=== PATIENT | female | born 1985 | race African-American/Black ===

== ENCOUNTER 2017-03-16 09:23 | Emergency (ER) | payer OTHER ==
[~2017-03-16] VITALS: Ht 170.2 cm; Wt 73.5 kg
[~2017-03-16 09:23] MED LIST: CLONAZEPAM0.5 M2 PO; PERCOCET 5-3251 EACH PO
[2017-03-16 09:30] VITALS: BP 124/80
[2017-03-16] MEDS ORDERED: KEFLEX500 M1 PO (09:58)
--- NOTE | 2017-03-16 09:58 | ED THROAT/DENTAL COMPLAINT ---
History of Present Illness General Chief Complaint: Sore Throat, Dental Pain Stated Complaint: SORE THROAT Source: patient Exam Limitations: no limitations Vital Signs & Intake/Output Vital Signs & Intake/Output Vital Signs Date Time Temp Pulse Resp B/P B/P Pulse O2 O2 Flow FiO2 Mean Ox Delivery Rate 03/16 0930 99.8 100 18 124/80 98 Room Air Allergies Coded Allergies: Penicillins (Severe, HIVES 09/23/16) codeine (Severe, HIVES 09/23/16) Reconcile Medications Cephalexin (Keflex) 500 MG CAPSULE 1 CAP PO TID STRTEP Clonazepam 0.5 MG TABLET 1 TAB PO BIDP PRN ANXIETY (Reported) Oxycodone HCl/Acetaminophen (Percocet 5-325 MG Tablet) 5 MG-325 MG TABLET 1 TAB PO Q6P PRN severe pain Triage Note: PT COMPLAINS OF SORE THROAT X 2 DAYS, DIFFICULTY SWALLOWING SPUTUM DUE TO PAIN Triage Nurses Notes Reviewed? yes Onset: Abrupt Duration: day(s):, constant, continues in ED Timing: recent history Injury Environment: home Severity: moderate, severe No Modifying Factors: none : No Patient currently breastfeeds: No HPI: 31-year-old female comes into emergency room for further evaluation of sore throat for the past 3 days. Hurts to swallow. Denies any fever. Denies any vomiting. Denies any cough. History of strep throat. Associated neck soreness. Denies any other associated symptoms. (ELISE PEREZ) Past History Travel History Traveled to [place] past 21 day No Medical History Any Pertinent Medical History? see below for history Neurological: NONE EENT: NONE Cardiovascular: NONE Respiratory: NONE Gastrointestinal: NONE Hepatic: NONE Renal: NONE Musculoskeletal: NONE Psychiatric: anxiety Endocrine: NONE Blood Disorders: NONE Cancer(s): NONE BOAT CAPTAIN/Reproductive: miscarriage, ECTOPIC History of MRSA: No History of VRE: No History of CDIFF: No Surgical History Surgical History: non-contributory Psychosocial History Who do you live with Family Services at Home None What is your primary language Italian Tobacco Use: Never used ETOH Use: denies use Illicit Drug Use: denies illicit drug use Family History Hx Contributory? No (ELISE PEREZ) Review of Systems Review of Systems Constitutional: Reports: see HPI. EENTM: Reports: see HPI. Respiratory: Reports: no symptoms. Cardiovascular: Reports: no symptoms. GI: Reports: no symptoms. Genitourinary: Reports: no symptoms. Musculoskeletal: Reports: no symptoms. Skin: Reports: no symptoms. Neurological/Psychological: Reports: no symptoms. Hematologic/Endocrine: Reports: no symptoms. Immunologic/Allergic: Reports: no symptoms. All Other Systems: Reviewed and Negative (ELISE PEREZ) Physical Exam Physical Exam General Appearance: well developed/nourished, no apparent distress, alert Head: atraumatic, normal appearance Eyes: Bilateral: normal appearance. Nose: normal inspection Mouth/Throat: Pharyngeal erythema, Neck: lymphadenopathy (R), lymphadenopathy (L) Cardiovascular/Respiratory: no respiratory distress Back: normal inspection Neurologic/Psych: awake, alert, oriented x 3, normal gait Skin: intact, normal color Core Measures ACS in differential dx? No Severe Sepsis Present: No Septic Shock Present: No (ELISE PEREZ) Progress Differential Diagnosis: aspirated tooth, carious tooth, epiglottitis, Ludwigs angina, meningitis, odontogenic abscess, ro[place] maria-tonsillar abscess, pharyngeal for. body, stomatitis/gingivitis, strep pharyngitis, tooth fracture Plan of Care: Orders Procedure Date/time Status THROAT CULTURE W/QUICK STREP 03/16 0927 Complete Comments: 03/16/2017 10:12:35 AM Patient clinically looks well. Patient is in no apparent distress. Resting comfortably in room. No evidence of peritonsillar abscess. Patient is allergic to penicillin but has had cephalexin in the past. Denies any vomiting. Clinically looks well on discharge. Nontoxic-appearing. (ELISE PEREZ) Departure Departure Disposition: HOME OR SELF CARE Condition: Stable Clinical Impression Primary Impression: Strep throat Referrals: DAVIE SIMMONS MD (PCP/Family) Additional Instructions: Take Keflex as prescribed. Take ibuprofen. Rinse. Drink fluids. Return if any other concerns worsening symptoms. Please go over all results of today's visit with your primary care doctor. Contact your primary care doctor to let them know you were here in the emergency room. There may be nonspecific findings which may not be related to your visit today here in the emergency room but may require further evaluation and chronic monitoring by your primary care doctor. If you had a laceration today the chance of foreign body always remains. You should follow-up with your primary care doctor for recheck in 3-5 days for a wound check. If you had an x-ray done there is a chance that a fracture could have been missed on initial read and you should follow-up with your primary care doctor for repeat x-rays if symptoms persist. If your blood pressure was elevated here in the emergency room please have rechecked by her primary care doctor within the next 48 hours by your primary care doctor. If you were prescribed a narcotic here in the emergency room or any type of controlled substances you're not allowed to drive while taking this medication or operate any type of heavy machinery. Narcotics can make you feel lightheaded dizziness nausea and can cause constipation. You may need to mushroom picker a stool softener. Thank you for choosing [facility] emergency room. Please return to the emergency room immediately if you have any other concerns worsening of symptoms. Departure Forms: Customer Survey General Discharge Information Prescriptions: Current Visit Scripts Cephalexin (Keflex) 1 CAP PO TID #30 CAP (ELISE PEREZ) PA/PHYSICIAN OFFICE REP Co-Sign Statement Statement: ED Attending supervision documentation- [] I saw and evaluated the patient. I have also reviewed all the pertinent lab results and diagnostic results. I agree with the findings and the plan of care as documented in the PA's/PHYSICIAN OFFICE REP's documentation. [X] I have reviewed the ED Record and agree with the PA's/PHYSICIAN OFFICE REP's documentation. [] Additions or exceptions (if any) to the PAs/PHYSICIAN OFFICE REP's note and plan are summarized below: [] (SULAIMAN WILCOX,MARTHA)
== END 2017-03-16 10:18 ==
LOC: ERH 09:23
DX: J02.0 Streptococcal pharyngitis (principal)